=== PATIENT | female | born 1945 | race Caucasian/White ===

== ENCOUNTER 2017-04-12 11:20 | Emergency (ER) | payer OTHER ==
[2017-04-12] MEDS ORDERED: NS 1,000 ML IV ONE (11:53)
[2017-04-12 11:57] LABS: PLATELET COUNT 267 10^3/uL (150-400)
--- NOTE | 2017-04-12 11:59 | EDPHY ---
H & P Stated Complaint: Cough, DAVID, chills, vomiting. 24 hours- +flu Time Seen by Provider: 04/12/17 11:56 HPI/ROS: HPI: This is a 71-year-old female presents with Chief Complaint: Cough, DAVID, chills, vomiting. 24 hours- +flu Location: Body Quality: Aches Duration: Less than 24 hr Signs and Symptoms: + low-grade fever, + chills, + nonproductive cough, + dull aching headache, + vomiting, + nausea, no abdominal pain, No diarrhea, no shortness of breath, no chest pain, no palpitations Timing: sudden Severity: [id number] Context: Patient has a history of bronchiectasis and COPD, not supplemental oxygen dependent, presents with complaints of sudden onset yesterday of body aches, low-grade fever, nonproductive cough, chills, nausea and 4 episodes of vomiting.Patient denies any diarrhea/abdominal pain/urinary symptoms. tested positive for influenza A. She has been using her inhalers for bronchiectasis. Denies any shortness of breath/wheezing/worsening cough symptoms. Patient reports that the vomiting episodes have not occurred today. Patient actually went for run yesterday morning before the symptoms started. She is surprised at how fast the symptom onset. Modifying Factors: See above Comment: ROS: see HPI Constitutional:+ fever, + chills, no weight loss Eyes: No blurred vision Respiratory: No shortness of breath, + cough Cardiovascular: No chest pain Gastrointestinal: No nausea, no vomiting, no diarrhea Genitourinary: No dysuria Extremities: No myalgias Neurologic: No weakness, no numbness Skin: No rashes Hematologic: No bruising, no bleeding MEDICAL/SURGICAL/SOCIAL HISTORY: Medical/surgical history: Bronchiectasis. COPD, HTN, Glaucoma, Bladder lift, Bilateral tka, endometriosis, bilateral inguinal hernia and hiatus hernia repair Social history: CONSTITUTIONAL: Extremely pleasant elderly white female, awake and alert, no obvious distress HEENT: Atraumatic and normocephalic, PERRL, EOMI. Tympanic membranes clear. Oropharynx clear, no exudate and moist pink mucosa. Airway patent. No lymphadenopathy. No meningismus. Cardiovascular: Normal S1/S2, mild tachycardia, regular rhythm, without murmur rub or gallop. PULMONARY/CHEST: Symmetrical and nontender. Clear to auscultation bilaterally. Good air movement. No accessory muscle usage. ABDOMEN: Soft, nondistended, nontender, no rebound, no guarding, no peritoneal signs, no masses or organomegaly. No CVAT. EXTREMITIES: 2/2 pulses, strength 5/5, no deformities, no clubbing, no cyanosis or edema. NEUROLOGICAL: no focal neuro deficits. GCS 15. SKIN: Warm and dry, no erythema. no rash. Good capillary refill. Source: Patient Exam Limitations: No limitations - Personal History Current Tetanus/Diphtheria Vaccine: Yes Current Tetanus Diphtheria and Acellular Pertussis (TDAP): Yes Tetanus Vaccine Date: 2013 - Medical/Surgical History Hx Asthma: No Hx Chronic Respiratory Disease: Yes Hx Diabetes: No Hx Cardiac Disease: Yes Hx Renal Disease: No Hx Cirrhosis: No Hx Alcoholism: No Hx HIV/AIDS: No Hx Splenectomy or Spleen Trauma: No Other PMH: Bronchiectasis. COPD, HTN, Glaucoma, Bladder lift, Bilateral tka, endometriosis, bilateral inguinal hernia and hiatus hernia repair, - Social History Smoking Status: Former smoker Constitutional: Initial Vital Signs Temperature (C) 37.0 C 04/12/17 11:28 Heart Rate 109 H 04/12/17 11:28 Respiratory Rate 18 04/12/17 11:28 Blood Pressure 97/62 L 04/12/17 11:28 O2 Sat (%) 94 04/12/17 11:28 O2 Delivery Mode Room Air Allergies/Adverse Reactions: iodine [Iodine] Allergy (Verified 04/12/17 11:35) Home Medications: Medication Instructions Recorded Ascorbate Calcium/Bioflavonoid 1 each PO DAILY 03/18/11 [Corazon-C 500 mg Tablet] Brimonidine 0.2% [Alphagan 0.2%] 2 drops EACHEYE BID 03/18/11 Calcium Carbonate/Magnesium Ox 1 each PO DAILY 03/18/11 [Oyster Shell Calcium-Magnes Tb] Cholecalciferol (Vitamin D3) 2,500 unit PO DAILY 03/18/11 [Vitamin D3] Fluticasone/Salmeter 250/50Mcg 1 inh IH BID 03/18/11 [Advair 250/50] Glucosam/Chondr/Collagn/Hyalur 1 each PO DAILY 03/18/11 [Glucosamine & Chondroitin Cap] Ipratropium/Albuterol [Combivent 3 puffs IH TID 03/18/11 Inh] Levalbuterol 1.25 mg [Xopenex] 1.25 mg IH TID 03/18/11 Mometasone Furoate Nasal [Nasonex] 2 sprays NASAL DAILY 03/18/11 ONDANSETRON HCL [zofran 4mg] 4 mg PO Q4-8PRN PRN #6 tab 03/18/11 Ranitidine HCl [Ranitidine HCl 150 150 mg PO HS 03/18/11 mg] TELMISARTAN [Micardis] 80 mg PO DAILY 03/18/11 Clonidine 04/12/17 Ondansetron Odt [Zofran Odt 4 mg 4 mg PO Q4 PRN #12 tab 04/12/17 (*)] Oseltamivir Phosphate [Tamiflu 75 75 mg PO BID #10 cap 04/12/17 mg (*)] Medical Decision Making - Diagnostics Imaging Results: Imaging Impressions Chest X-Ray 04/12/17 11:47 Impression: 1. No pneumonia. 2. Stable right upper lobe scarring. ED Course/Re-evaluation: Patient most likely has influenza as does her . Due to her history of bronchiectasis and nausea and vomiting; will obtain labs, chest x-ray, influenza test per patient request. Given 1 L normal saline. No signs of hypoxia/wheezing Labs reviewed and show mild leukocytosis and low normal potassium; given oral potassium supplementation 20 mEq Influenza A positive; Tamiflu candidate Chest x-ray my read shows no effusion, no opacity, no pneumothorax, no widened mediastinum This patient was seen under the supervision of my secondary supervising physician. I evaluated care for this patient independently. Differential Diagnosis: Adult fever including but not limited to viral syndromes including influenza, urinary tract infection, pneumonia and sepsis. - Data Points Laboratory Results: Laboratory Results 04/12/17 11:45 04/12/17 11:45 04/12/17 04/12/17 04/12/17 11:45 11:45 11:30 WBC 12.82 10^3/uL H 10^3/uL (3.80-9.50) RBC 5.84 10^6/uL H 10^6/uL (4.18-5.33) Hgb 12.6 g/dL g/dL (12.6-16.3) Hct 38.3 % % (38.0-47.0) MCV 65.6 fL L fL (81.5-99.8) MCH 21.6 pg L pg (27.9-34.1) MCHC 32.9 g/dL g/dL (32.4-36.7) RDW 16.6 % H % (11.5-15.2) Plt Count 267 10^3/uL 10^3/uL (150-400) MPV 10.7 fL fL (8.7-11.7) Neut % (Auto) 87.6 % H % (39.3-74.2) Lymph % (Auto) 2.7 % L % (15.0-45.0) Hardin % (Auto) 8.7 % % (4.5-13.0) Eos % (Auto) 0.2 % L % (0.6-7.6) Baso % (Auto) 0.3 % % (0.3-1.7) Nucleat RBC Rel Count 0.0 % % (0.0-0.2) Absolute Neuts (auto) 11.22 10^3/uL H 10^3/uL (1.70-6.50) Absolute Lymphs (auto) 0.35 10^3/uL L 10^3/uL (1.00-3.00) Absolute Monos (auto) 1.12 10^3/uL H 10^3/uL (0.30-0.80) Absolute Eos (auto) 0.02 10^3/uL L 10^3/uL (0.03-0.40) Absolute Basos (auto) 0.04 10^3/uL 10^3/uL (0.02-0.10) Absolute Nucleated RBC 0.00 10^3/uL 10^3/uL (0-0.01) Immature Gran % 0.5 % % (0.0-1.1) Immature Gran # 0.07 10^3/uL 10^3/uL (0.00-0.10) Platelet Estimate ADEQUATE (ADEQ) Polychromasia 1+ H Hypochromasia 1+ H Microcytic Cells 3+ H Smear Review By Pending Sodium 144 mEq/L mEq/L (135-145) Potassium 3.3 mEq/L L mEq/L (3.5-5.2) Chloride 101 mEq/L mEq/L (97-110) Carbon Dioxide 26 mEq/l mEq/l (22-31) Anion Gap 17 mEq/L H mEq/L (8-16) BUN 13 mg/dL mg/dL (7-23) Creatinine 0.9 mg/dL mg/dL (0.6-1.0) Estimated GFR > 60 Glucose 135 mg/dL H mg/dL (70-100) Calcium 9.4 mg/dL mg/dL (8.5-10.4) Total Bilirubin 0.6 mg/dL mg/dL (0.1-1.4) Conjugated Bilirubin 0.2 mg/dL mg/dL (0.0-0.5) Unconjugated Bilirubin 0.4 mg/dL mg/dL (0.0-1.1) AST 24 IU/L IU/L (14-46) ALT 30 IU/L IU/L (9-52) Alkaline Phosphatase 101 IU/L IU/L (38-126) Total Protein 7.2 g/dL g/dL (6.3-8.2) Albumin 4.3 g/dL g/dL (3.5-5.0) Lipase 71 IU/L IU/L (23-300) Nasal Influenza A PCR FLU A DETECTED H (NEGATIVE) Nasal Influenza B PCR NEGATIVE FOR FLU B (NEGATIVE) Influenza A,B Rapid 04/12/17 11:30 WBC RBC Hgb Hct MCV MCH MCHC RDW Plt Count MPV Neut % (Auto) Lymph % (Auto) Hardin % (Auto) Eos % (Auto) Baso % (Auto) Nucleat RBC Rel Count Absolute Neuts (auto) Absolute Lymphs (auto) Absolute Monos (auto) Absolute Eos (auto) Absolute Basos (auto) Absolute Nucleated RBC Immature Gran % Immature Gran # Platelet Estimate Polychromasia Hypochromasia Microcytic Cells Smear Review By Sodium Potassium Chloride Carbon Dioxide Anion Gap BUN Creatinine Estimated GFR Glucose Calcium Total Bilirubin Conjugated Bilirubin Unconjugated Bilirubin AST ALT Alkaline Phosphatase Total Protein Albumin Lipase Nasal Influenza A PCR Nasal Influenza B PCR Influenza A,B Rapid Cancelled Medications Given: Discontinued Medications Sodium Chloride (Ns) 1,000 mls @ 0 mls/hr IV ONCE ONE; Wide Open PRN Reason: Protocol Stop: 04/12/17 11:54 Last Admin: 04/12/17 11:53 Dose: 1,000 mls Ondansetron HCl (Zofran) 4 mg IVP EDNOW ONE Stop: 04/12/17 12:10 Last Admin: 04/12/17 12:39 Dose: Not Given Oseltamivir Phosphate (Tamiflu) 75 mg PO EDNOW ONE Stop: 04/12/17 12:49 Last Admin: 04/12/17 13:03 Dose: 75 mg Potassium Chloride (Potassium Chloride Oral Liquid) 20 meq PO EDNOW ONE Stop: 04/12/17 12:50 Last Admin: 04/12/17 13:02 Dose: 20 meq Departure - Departure Disposition: Home, Routine, Self-Care Clinical Impression: Influenza A Condition: Good Instructions: Influenza (ED) Additional Instructions: Consume a minimum of 8-10 glasses of water or electrolyte fluid replacement drinks that include Gatorade, Powerade, Pedialyte. Eat a bland diet for the next 48 hours and then slowly advance as tolerated. Take Tylenol and/or ibuprofen as needed for fever. Take Zofran 1 tab every 4 hours as needed for nausea, vomiting. Rest as much as possible until you are feeling better. Take all of the Tamiflu as directed until complete. Follow-up with your primary care provider in the next 3-5 days as you would benefit from close monitoring due to history of bronchiectasis. Referrals: PCP Not In,Dictionary [Medical Doctor] - As per Instructions Prescriptions: Ondansetron Odt [Zofran Odt 4 mg (*)] 4 mg PO Q4 PRN #12 tab PRN Reason: Nausea/Vomiting, Use 1st Oseltamivir Phosphate [Tamiflu 75 mg (*)] 75 mg PO BID #10 cap
[2017-04-12] MEDS ORDERED: ONDANSETRON 4 MG/2 ML VIAL IVP ONE (12:09)
[2017-04-12] MEDS ORDERED: OSELTAMIVIR PHOSPHATE 75 MG CAP PO ONE (12:48)
[2017-04-12] MEDS ORDERED: POTASSIUM CL 20 MEQ/15 ML UDCUP PO ONE (12:49)
[2017-04-12 13:42] VITALS: BP 95/52; PULSE 97; RESP 16; TEMP 99.1; O2SAT 90
== END 2017-04-12 13:42 | disposition home or self-care (01) ==
DX: J10.1 Influenza due to other identified influenza virus with other respiratory manifestations (principal); E86.9 Volume depletion, unspecified; I10 Essential (primary) hypertension; J44.9 Chronic obstructive pulmonary disease, unspecified; Z87.891 Personal history of nicotine dependence